=== PATIENT | female | born 1990 | race Caucasian/White ===

== ENCOUNTER 2016-11-05 12:39 | Emergency (ER) | payer OTHER ==
[~2016-11-05 12:39] MED LIST: ADAL1INJ; IBUP800T23 PO; MMW SWISH-SPIT; PENI500T PO; Z.0.BCPILL PO
[2016-11-05 12:42] VITALS: BP 139/83; PULSE 93; RESP 15; TEMP 97.8; O2SAT 98
--- NOTE | 2016-11-05 12:52 | PD ---
Physical Exam Date Seen by Provider: Nov 05, 2016 Time Seen by Provider: 12:48 Data Data Last Documented VS Vital Signs Date Time Temp Pulse Resp B/P Pulse Ox O2 Delivery O2 Flow Rate FiO2 11/05/16 12:42 97.8 93 15 139/83 98 MDM Supervised Visit with JANELL: No Narrative Course 25 YO F with complaint of swollen knee x " a couple weeks." History of psoriatic arthritis with knee effusion. No known injury. Treating with Jose C. Just moved from [place]. Vitals reviewed. Patient seen in triage. Awaiting bed placement. Janeen Torres Nov 05, 2016 12:52
--- NOTE | 2016-11-05 13:00 | PD ---
HPI Chief Complaint: Musculoskeletal Complaint Time Seen by Provider: 12:57 Travel History International Travel<30 days: No Contact w/Intl Traveler<30days: No Traveled to known affect area: No History of Present Illness HPI 25-year-old Afro-[place] male with history of psoriatic arthritis presents to emergency Department with several week history of knee effusion and pain. Patient is moved out here 2 months ago from the [place] area but has not established with a local housekeeping aide or orthopedist at this time. Patient states difficulty ambulating secondary to the discomfort in the left knee. She describes the pain as a 7 out of 10. She denies any fever, chills, or other signs of infection. She is on a immunosuppressant medication. Patient states in the past she's had the knee effusion drained with good results. She is allergic to Percocet. [facility] Past Medical History ADD: Yes Arthritis: Yes (PSORIATIC ARTHRITIS) Asthma: Yes ( A CHILD) Diminished Hearing: No Immunizations Current: Yes Migraines: Yes Past Surgical History Other Surgery: Yes (JAW) Social History Alcohol Use: No Tobacco Use: No Substance Use: No Allergies-Medications (Allergen,Severity, Reaction): Coded Allergies: Percocet (Verified Allergy, Mild, Nausea/Vomiting, 11/05/16) Reported Meds & Prescriptions Reported Meds & Active Scripts Active Review of Systems Except as stated in HPI: all other systems reviewed are Neg General / Constitutional: No: Fever, Chills Eyes: No: Visual changes HENT: No: Headaches Cardiovascular: No: Chest Pain or Discomfort Respiratory: No: Shortness of Breath Gastrointestinal: No: Abdominal Pain Genitourinary: No: Dysuria Musculoskeletal: Positive: Arthralgias, Limited ROM, Pain, Other Skin: No Rash Neurologic: No: Weakness Psychiatric: No: Depression Endocrine: No: Polydipsia Hematologic/Lymphatic: No: Easy Bruising Physical Exam Narrative GENERAL: Patient appears in mild to moderate distress. SKIN: Warm and dry. Normal color. Normal turgor. No erythema or rash. No signs of septic joint. No increased warmth or erythema. HEAD: Atraumatic. Normocephalic. EYES: Pupils equal and round. No scleral icterus. No injection or drainage. ENT: No nasal bleeding or discharge. Mucous membranes pink and moist. Pharynx is clear, airway patent. NECK: Trachea midline. Supple and nontender. CARDIOVASCULAR: Regular rate and rhythm. RESPIRATORY: No accessory muscle use. Clear to auscultation. Breath sounds equal bilaterally. MUSCULOSKELETAL: Extremities without clubbing, cyanosis, or edema. No obvious deformities. Patient has obvious moderate to severe effusion to the left knee standing into the distal thigh. Range of motion is somewhat diminished secondary to the swelling. No obvious laxity is appreciated. NEUROLOGICAL: Awake and alert. No obvious cranial nerve deficits. Motor grossly within normal limits. Five out of 5 muscle strength in the arms and legs. Normal speech. PSYCHIATRIC: Appropriate mood and affect; insight and judgment normal. Data Data Last Documented VS Vital Signs Date Time Temp Pulse Resp B/P Pulse Ox O2 Delivery O2 Flow Rate FiO2 11/05/16 12:42 97.8 93 15 139/83 98 Orders Prednisone (Deltasone) (11/05/16 13:30) Crutches (11/05/16 13:20) Splint Or Brace Apply/Monitor (11/05/16 13:20) [facility] Medical Decision Making Medical Screen Exam Complete: Yes Emergency Medical Condition: Yes Differential Diagnosis Psoriatic arthritis. Left knee pain. Left knee effusion. Narrative Course I explained to the patient that we do not drain joints here in the department per our protocol. Patient is given 60 mg prednisone by mouth. She is placed in a knee immobilizer and crutches. She is continued on prednisone 20 mg twice a day 7 days. Patient is referred to Dr. Mead, the orthopedic on-call for further evaluation and treatment. Patient is encouraged to file local housekeeping aide as soon as possible. Patient should return the emergency Department with any erythema, fever, or worsening pain. Diagnosis Primary Impression: Psoriatic arthritis Additional Impressions: Effusion of left knee joint Left knee pain Qualified Code: M25.562 - Acute pain of left knee Referrals: Steven Mead MD call for appointment Patient Instructions: Crutch Instructions (ED), General Instructions, Knee Immobilizer (ED), Prednisone (By mouth) Additional Instructions: I explained to the patient that we do not drain joints here in the department per our protocol. Patient is given 60 mg prednisone by mouth. She is placed in a knee immobilizer and crutches. She is continued on prednisone 20 mg twice a day 7 days. Patient is referred to Dr. Mead, the orthopedic on-call for further evaluation and treatment. Patient is encouraged to file local housekeeping aide as soon as possible. Patient should return the emergency Department with any erythema, fever, or worsening pain. Med/Other Pt SpecificInfo: Prescription(s) given Disposition: 01 DISCHARGE HOME Condition: Stable Elliott Shoemaker Nov 05, 2016 13:00
[2016-11-05] MEDS ORDERED: predniSONE 20 MG TAB PO ONE (13:30)
[2016-11-05] MEDS ORDERED: PRED20 PO (13:47)
== END 2016-11-05 13:54 | disposition home or self-care (01) ==
LOC: NEPD 13:01
DX: L40.50 Arthropathic psoriasis, unspecified (principal); M25.562 Pain in left knee; M25.462 Effusion, left knee
CPT/HCPCS: 99283; E0113; J7512; L1830